=== PATIENT | female | born 1980 | race African-American/Black ===

== ENCOUNTER 2017-04-07 21:58 | Emergency (ER) | payer SELFPAY ==
[2017-04-07] MEDS ORDERED: EPINEPHRINE INJ/PF 1 MG/1 ML AMPULE SUBCUT PRN ×2 (22:11→22:53)
[2017-04-07] MEDS ORDERED: DIPHENHYDRAMINE HCL 50 MG CAPSULE PO ONE (22:12)
[2017-04-07] MEDS ORDERED: FAMOTIDINE 20 MG TABLET PO ONE (22:12)
--- NOTE | 2017-04-07 22:13 | ER Document Report ---
ED Allergic Reaction - General Mode of Arrival: Ambulatory Information source: Patient TRAVEL OUTSIDE OF THE [place] IN LAST 30 DAYS: No - HPI Onset: Just prior to arrival Skin rash / itching: Facial, Trunk, Extremities Associated symptoms: Chest pain - General Chief Complaint: Allergic Reaction Stated Complaint: POSSIBLE ALLERGIC REACTION Time Seen by Provider: 04/07/17 22:09 Notes: Patient is a 36 year old female presenting to the emergency department for an allergic reaction. 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 Patient states she is feeling somewhat short of breath, is itchy, and has some throat and chest tightness. 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 Patient has a history of hypertension. (LEONARDA NUÑEZ) - Related Data Allergies/Adverse Reactions: hydromorphone HCl [From Dilaudid] Allergy (Severe, Verified 10/20/11 13:52) latex [Latex] Allergy (Severe, Verified 10/20/11 13:52) tramadol HCl [From Ultram] Allergy (Severe, Verified 10/20/11 13:52) breathing difficulty codeine Allergy (Verified 04/07/17 22:31) ketorolac [From Toradol] Allergy (Verified 04/07/17 22:31) ondansetron HCl [From Zofran] Allergy (Verified 10/20/11 13:52) Hives Sulfa (Sulfonamide Antibiotics) Allergy (Verified 04/07/17 22:31) toradol Allergy (Severe, Uncoded 09/14/11 22:44) Past Medical History - General Information source: Patient - Social History Smoking Status: Never Smoker Family History: None Patient has suicidal ideation: No Patient has homicidal ideation: No - Past Medical History Cardiac Medical History: Reports: Hx Hypertension Endocrine Medical History: Reports: Hx Diabetes Mellitus Type 2 Past Surgical History: Reports: Hx Thyroid Surgery - thyroidectomy - Immunizations Hx Diphtheria, Pertussis, Tetanus Vaccination: Yes Review of Systems - Review of Systems Constitutional: No symptoms reported EENT: See HPI Cardiovascular: See HPI Respiratory: See HPI Gastrointestinal: No symptoms reported Genitourinary: No symptoms reported Female Genitourinary: No symptoms reported Musculoskeletal: No symptoms reported Skin: See HPI Hematologic/Lymphatic: No symptoms reported Neurological/Psychological: No symptoms reported -: Yes All other systems reviewed and negative Physical Exam - Vital signs Vitals: Temp Pulse Resp BP Pulse Ox 98.2 F 77 20 123/75 95 04/07/17 22:00 04/07/17 22:00 04/07/17 22:00 04/07/17 22:00 04/07/17 22:00 - Notes Notes: GENERAL: Alert, interacts well, patient is scratching her head and upper extremities. Mild distress. HEAD: Normocephalic, atraumatic. EYES: Appear normal. Pupils equal, round, and reactive to light. ENT: Moist mucus membranes, tongue midline. Clear oropharynx, no swelling. NECK: Full range of motion. Supple. Trachea midline. LUNGS: Clear to auscultation bilaterally, no wheezes, rales, or rhonchi. No respiratory distress. HEART: Regular rate and rhythm. No murmurs, gallops, or rubs. ABDOMEN: Soft, non-tender. Non-distended. Normal bowel sounds. EXTREMITIES: Moves all 4 extremities spontaneously. Normal strength. No edema. NEUROLOGICAL: Alert and oriented x3. Normal speech. No focal neurological deficits. GSC 15. PSYCH: Normal affect, normal mood. SKIN: Warm, dry, normal turgor. Diffuse urticaria to the face and upper extremities. (LEONARDA NUÑEZ) Course - Re-evaluation Re-evalutation: 04/07/17 23:48 The patient is feeling much better and would like to go. She does have her own EpiPen's, they were in her purse in the car that has been driveway with while she was upstairs visiting someone in the hospital so she had to come to the emergency room because she did not have access to her EpiPen when the reaction began. (NINA VALADEZ) - Vital Signs Vital signs: Temp Pulse Resp BP Pulse Ox 98.2 F 77 20 124/110 H 100 04/07/17 22:00 04/07/17 22:00 04/07/17 23:15 04/07/17 22:23 04/07/17 22:45 Discharge - Discharge Clinical Impression: Acute allergic reaction Qualifiers: Encounter type: initial encounter Qualified Code(s): T78.40XA - Allergy, unspecified, initial encounter Condition: Stable Disposition: HOME, SELF-CARE Additional Instructions: Acute Allergic Reaction: Your symptoms are due to an allergic reaction. Allergy can cause hives, swelling of the hands, feet, and face, hoarseness, and difficulty swallowing or breathing. It may be due to exposure to medication, animal dander, foods, infection, or insect bites. Medication is a common cause, even when prior use of this same medication caused no problems. Acute treatment may include adrenalin and antihistamines. Usually, the specific allergic agent can't be identified unless repeated episodes occur. Home treatment includes the following: (1) Stop any suspicious medications. This will be discussed with you. (2) Oral antihistamines for the next four to five days. Example, diphenhydramine (Benadryl) every four hours. (3) You may also use cimetidine (Tagamet), ranitidine (Zantac), or famotidine (Pepcid) every four hours if diphenhydramine is not controlling itching and hives. (4) Avoid aspirin until the hives completely disappear. (5) Avoid hot bahs or showers until the hives are completely gone. Call the doctor if faintness, difficulty swallowing, tightness in the chest, or wheezing occurs. Use your EpiPen if the reaction gets severe again. RETURN TO THE EMERGENCY ROOM IF ANY NEW OR WORSENING SYMPTOMS. Scribe Attestation: 04/07/17 23:50 I personally performed the services described in the documentation, reviewed and edited the documentation which was dictated to the scribe in my presence, and it accurately records my words and actions. (NINA VALADEZ) Scribe Documentation - Scribe Written by Tenzin:: Tenzin Gregorio 04/07/17 23:09 acting as scribe for :: Jose
[2017-04-07] MEDS ORDERED: METHYLPREDNISOLONE INJ 125 MG/2 ML SDV IV ONE (22:53)
[2017-04-07 23:58] VITALS: BP 136/86
== END 2017-04-07 23:58 | disposition home or self-care (01) ==
LOC: ER 21:58
DX: T78.1XXA Other adverse food reactions, not elsewhere classified, initial encounter (principal); I10 Essential (primary) hypertension; E11.9 Type 2 diabetes mellitus without complications
CPT/HCPCS: 99283; 96372; 96374; J0171; J2930